=== PATIENT | male | born 1970 | race Caucasian/White ===

== ENCOUNTER 2017-11-22 13:09 | Emergency (ER) | payer BC ==
[2017-11-22] MEDS ORDERED: Oxymetazoline 0.05% Nasal Spray 15 ML Bottle NAS ONE (13:33)
--- NOTE | 2017-11-22 13:37 | EDM.PDOC ---
ED HPI GENERAL MEDICAL PROBLEM - General Chief Complaint: ENT Problem Stated Complaint: BLOODY NOSE Time Seen by Provider: 11/22/17 13:28 Source of Information: Reports: Patient History Limitations: Reports: No Limitations - History of Present Illness INITIAL COMMENTS - FREE TEXT/NARRATIVE: The patient presents with a nosebleed. This started this morning at around 7: 30am. He had no trauma to his nose. This will happen sometimes in the winter when it is dry. He says it is usually the left side. This time it is the right side. He is on aspirin and coumadin for an aortic valve. His last INR was 2.9. Onset: Gradual Duration: Hour(s): (7:30am) Severity: Moderate Improves with: Reports: None Worsens with: Reports: None Associated Symptoms: Reports: No Other Symptoms - Related Data Allergies Allergy/AdvReac Type Severity Reaction Status Date / Time No Known Allergies Allergy Verified 11/22/17 13:37 Home Meds: Home Meds Aspirin [Halfprin] 81 mg PO DAILY 11/22/17 [History] Ezetimibe [Zetia] 10 mg PO DAILY 11/22/17 [History] Metoprolol Succinate [Toprol XL] 12.5 mg PO DAILY 11/22/17 [History] Sertraline [Zoloft] 0 mg PO DAILY 11/22/17 [History] Warfarin [Coumadin] 7.5 mg PO ASDIRECTED 11/22/17 [History] ED ROS ENT - Review of Systems Review Of Systems: See Below Constitutional: Reports: No Symptoms HEENT: Reports: Nosebleed Respiratory: Reports: No Symptoms Cardiovascular: Reports: No Symptoms Endocrine: Reports: No Symptoms GI/Abdominal: Reports: No Symptoms : Reports: No Symptoms ED EXAM, ENT - Physical Exam Exam: See Below Exam Limited By: No Limitations General Appearance: Alert, No Apparent Distress Ears: Normal External Exam Mouth/Throat: Normal Inspection Head: Atraumatic, Normocephalic Neck: Normal Inspection Respiratory/Chest: No Respiratory Distress ED ENT PROCEDURES - Epistaxis Procedure Indication: Epistaxis Recent anticoagulants/antiplatlets: Yes Uncontrolled HTN: No Recent septal/nasal surgery: No Site of bleeding: Right Nare Clearing of clots: Patient Blew Nose, Suction Topical Meds: Phenylephrine Chemical cautery: Silver Nitrate Topical Posterior packing: Long Inflatable Nasal Tampon Course - Vital Signs Last Recorded V/S: Last Vital Signs Temp 95.8 F 11/22/17 13:27 Pulse 52 L 11/22/17 13:27 Resp 18 11/22/17 13:27 BP 142/104 H 11/22/17 13:27 Pulse Ox 98 11/22/17 13:27 - Orders/Labs/Meds Labs: Laboratory Tests 11/22/17 Range/Units 01:44 PT 38.6 H (8.0-13.0) SECONDS INR 3.28 Meds: Medications Discontinued Medications Generic Name Dose Route Start Last Admin Trade Name Zak PRN Reason Stop Dose Admin Oxymetazoline HCl 1 ml 11/22/17 13:33 11/22/17 13:41 Afrin Original 0.05% Nasal [place] TANYA 11/22/17 13:34 1 spray ONETIME ONE Administration - Re-Assessments/Exams Free Text/Narrative Re-Assessment/Exam: 11/22/17 16:15 I was able to identify an anterior bleed and a used silver nitrate to get it to stop but there was a posterior bleed I could not stop. I had to use a 7.5cm rhino rocket to get it to stop. I will discharge him to home and have this out in 3 days. 11/22/17 16:17 His INR was 3.28. Departure - Departure Time of Disposition: 16:20 Disposition: Home, Self-Care 01 Condition: Good Clinical Impression: Epistaxis - Discharge Information Referrals: Antoine Willoughby MD [Primary Care Provider] - 3 Days Forms: ED Department Discharge Additional Instructions: Stop the aspirin for 1 week. Keep taking the coumadin. Have the rhino rocket taken out in 3 days.
== END 2017-11-22 16:30 | disposition home or self-care (01) ==
LOC: JD.ED 13:09
DX: R04.0 Epistaxis (principal); Z79.82 Long term (current) use of aspirin; Z79.01 Long term (current) use of anticoagulants; Z79.899 Other long term (current) drug therapy
CPT/HCPCS: 30903; 36415; 85610; 99283; A9270; 99281-25

== ENCOUNTER 2022-01-24 10:00 | Emergency (ER) | payer BC | END 2022-01-24 14:05 | disposition home or self-care (01) | LOC: JD.ED 10:00 → SUPCPDRO 10:00 → JD.ED 14:05 | DX: R04.0 Epistaxis (principal); E78.00 Pure hypercholesterolemia, unspecified; I10 Essential (primary) hypertension; Z79.82 Long term (current) use of aspirin; Z79.899 Other long term (current) drug therapy; Z79.01 Long term (current) use of anticoagulants | CPT/HCPCS: 36415; 80053; 85025; 85610; 85730; 93005; 93010; 99284; 99284-25 ==

== ENCOUNTER 2023-12-26 07:38 | Emergency (ER) | payer BC ==
[2023-12-26] MEDS ORDERED: Tranexamic Acid 1,000 MG/10 ML Vial ONE (08:00)
[2023-12-26 10:58] LABS: INR 4.02; PROTHROMBIN TIME 38.8 SECONDS (9.7-12.0)
== END 2023-12-26 10:47 | disposition home or self-care (01) ==
LOC: JD.ED 07:38
DX: R04.0 Epistaxis (principal); R79.1 Abnormal coagulation profile; I10 Essential (primary) hypertension; E78.00 Pure hypercholesterolemia, unspecified; Z79.82 Long term (current) use of aspirin; Z79.899 Other long term (current) drug therapy; Z79.01 Long term (current) use of anticoagulants
CPT/HCPCS: 30901; 30903; 36415; 85610; 85730; 99283; J3490